=== PATIENT | male | born 2000 | race Caucasian/White ===

== ENCOUNTER → 2021-02-01 | Outpatient (CLI) | payer OTHER ==
--- NOTE | 2021-02-01 11:09 | XR ---
EXAMINATION TYPE: XR abdomen acute w cxr DATE OF EXAM: 02/01/2021 COMPARISON: Chest x-ray 2001 HISTORY: R19.4 R11.11 TECHNIQUE: Supine, upright, and frontal chest views of the abdomen and chest are obtained. FINDINGS: Chest x-ray shows no acute cardiopulmonary disease. Slight spinal curvature is noted which could be positional. Indeterminate calcifications in the pelvis may be vascular, phleboliths. There is no evidence for pneumoperitoneum. The bowel gas pattern is unremarkable as there is air throughout nondilated small and large bowel. No sizeable air fluid levels. No mass effects are seen. No unusual calcifications. IMPRESSION: Unremarkable study
== END | disposition home or self-care (01) ==
LOC: RADXRMAIN 10:39
PROVIDERS: ATTEND Family Medicine
DX: R19.4 Change in bowel habit (principal); R11.11 Vomiting without nausea
CPT/HCPCS: 74022